=== PATIENT | female | born 1955 | race Caucasian/White ===

== ENCOUNTER 2023-08-03 09:21 | Day surgery (SDC) | payer OTHER ==
[2023-08-02 14:54] LABS: Absolute Lymphocytes (CBC) 1.5 K/uL (0.7-4.9); Hematocrit 32.9 % (36.0-45.0); Lymphocytes % 27.1 % (15.3-44.8); MCV 80.1 fL (80-100); MPV 8.5 fL (7.6-11.3); Platelets 177 thou/uL (152-406)
--- NOTE | 2023-08-02 14:56 | RAD REPORT ---
EXAM DESCRIPTION: RAD - Chest Pa And Lat (2 Views) - 08/02/2023 2:46 pm CLINICAL HISTORY: preop COMPARISON: <Comparisons> FINDINGS: Lines: None. Lungs: No evidence of edema or pneumonia. Pleural: No significant pleural effusions or pneumothorax. Cardiac: The heart size is within normal limits. Mediastinum: Within normal limits. Bones: No acute fractures. Other: None IMPRESSION: No acute cardiopulmonary disease.
[2023-08-02 14:58] LABS: Potassium 3.8 mEq/L (3.5-5.1)
--- NOTE | 2023-08-02 17:10 | EKG ---
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
[2023-08-03] MEDS ORDERED: CEFAZOLIN SODIUM 1 GM/VIAL ONE (09:40)
[2023-08-03] MEDS ORDERED: NA CHLORIDE 0.9% 1,000 ML ONE (09:40)
[2023-08-03] MEDS ORDERED: BUPIVACAINE 0.5% PF 10 ML VIAL ONE (10:37)
[2023-08-03] MEDS ORDERED: dexAMETHasone 4 MG/ML VIAL ONE (11:07)
[2023-08-03] MEDS ORDERED: ROCURONIUM 50 MG/5 ML VIAL IV ONE (11:07)
[2023-08-03] MEDS ORDERED: ONDANSETRON 4 MG/2 ML VIAL ONE (11:07)
[2023-08-03] MEDS ORDERED: LIDOCAINE 1% MPF 5 ML VIAL ONE (11:07)
[2023-08-03] MEDS ORDERED: propofoL 200 MG/20 ML VIAL IV ONE (11:08)
[2023-08-03] MEDS ORDERED: MIDAZOLAM HCL 2 MG/2 ML INJ ONE (11:09)
[2023-08-03] MEDS ORDERED: FENTANYL CITR 100 MCG/2 ML ONE (11:09)
[2023-08-03] MEDS ORDERED: KETOROLAC 30 MG/ML INJ ONE (11:36)
--- NOTE | 2023-08-03 12:39 | P.BOP ---
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
[2023-08-03] MEDS ORDERED: NEOSTIGMINE 1 MG/ML -10 ML VIAL ONE (12:40)
[2023-08-03] MEDS ORDERED: GLYCOPYRROLATE 0.2 MG/ML SYR ONE ×3 (12:41)
--- NOTE | 2023-08-03 13:22 | OP ---
Date of Procedure: 08/03/2023 Surgeon: Chris Mo MD Preoperative Diagnosis: Right buttock basal cell carcinoma. Postoperative Diagnosis: Right buttock basal cell carcinoma. Procedure: Wide excision of right buttock basal cell carcinoma with frozen section 3 x 2.5 cm. Estimated Blood Loss: Less than 10 cc. Specimen: Margins free. No residual tumor per Dr. Bustamante. Findings: As above. Anesthesia: General plus local. Complications: None. Indications: This is a case of a 68-year-old patient who had a pilonidal cyst removed several months ago and incidentally we found a basal cell carcinoma. This surgery was not done for basal cell carc inoma as an incidental finding. Now few months later, when she healed from that area, she wants obvi ously a wide resection of that basal cell carcinoma with benefits, alternatives, and risks fully expl ained, which include, but not limited to, infection, bleeding, damage to adjacent structures, anesthe christelle complication, recurrence, RI, and even . She also understands this may not relieve any symp toms. She might need more than one surgical intervention. She understood, signed a consent. The ar ea of concern was marked by me and the patient in the holding room. She does have some redness formi ng in the last 2 days, she thinks, is due to a cream that she is using in that area. We are going to give the antibiotics postoperatively anyway. Description Of Procedure: The patient was brought to the operating room, placed in supine position. Then, the patient was placed in prone position with proper protection. Buttock area was prepped and draped in usual sterile fashion. A time-out was called. At that moment, I proceeded to make a wedg e incision of the skin to cross the area at least by 3 x 3 cm wide. The mass was in the area which w as the previous scar area too was removed. We had to go deep since the patient had some scar from th e previous pilonidal cyst and then the mass was completely excised. Area was irrigated and sent to [facility] tra[facility] section tumor, margins free of tumor. Area was irrigated. We proceeded to close th is deeper layers with 0 chromic, 3-0 chromic, and then the skin in a [id number] fashion with 2-0 nylon. Irrigation was done and hemostasis before closure. Patient tolerated the procedure well. P atient sent to Recovery in stable condition. SOLE/DIEUDONNE Voice ID: [id number] Report ID: [id number]
--- NOTE | 2023-08-03 13:22 | DS ---
Diagnosis: Right buttock basal cell carcinoma. Procedure: Wide excision of right buttock basal cell carcinoma. Disposition: Home. Activity: As tolerated. No heavy lifting. Condition: Stable. Plan: Follow up in my office in 1 week. Call for appointment at [phone]. Keep area dry for 24 leonidas rs, then after that may clean with soap and water and put some Bactroban on it or triple antibiotics. SOLE/DIEUDONNE Voice ID: [id number] Report ID: [id number]
[2023-08-03 13:36] VITALS: O2SAT 97
[2023-08-03 14:34] VITALS: BP 143/66; TEMP 96.8
== END 2023-08-03 14:10 | disposition home or self-care (01) ==
LOC: OR 09:21
PROVIDERS: ATTEND Surgery
PROC: 0JB90ZZ Excision of Buttock Subcutaneous Tissue and Fascia, Open Approach (ICD-10-PCS; principal; 2023-08-03 11:00)
DX: C44.519 Basal cell carcinoma of skin of other part of trunk (principal)
CPT/HCPCS: 93005; 85025; 80048; 36415; 82947 ×2; 88305; 71046; 11603; J2704; J1100; J2710; J2001; J2250; J3010; J2405; J7030; J0690